=== PATIENT | female | born 1950 | race Caucasian/White ===

== ENCOUNTER → 2018-02-22 | Day surgery (SDC) | payer MEDICARE, OTHER ==
[2018-02-18 12:59] LABS: Basophils # (auto) 0 uL; Basophils % (auto) 0.3 % (0.0-2.0); Eosinophils # (auto) 0.1 uL; Hematocrit 42.9 % (36.0-46.0); Lymphocytes # (auto) 1.2 uL; Mean Corpuscular Hemoglobin 31.4 pg (28.0-32.0); Mean Corpuscular Hgb Conc. 34.9 g/dL (32.0-36.0); Monocytes # (auto) 0.5 uL; Monocytes % (auto) 6.8 % (0.0-12.0); Neutrophils # (auto) 5.1 uL; Neutrophils % (auto) 74.9 % (37.0-80.0); Nucleated Red Blood Cells % 0.1 %; Platelet Count (auto) 189 10^3/uL (140-450); Red Blood Cells 4.76 10^6/uL (4.0-5.20); Red Cell Distribution Width 13.3 % (11.8-14.3); White Blood Cell 6.8 10^3/uL (4.4-10.8)
[2018-02-18 13:12] LABS: INR 0.93 (0.9-1.15); Partial Thromboplastin Time 32.2 sec (23.78-33.04)
[2018-02-18 13:19] LABS: Albumin 3.8 g/dL (3.4-5.0); BUN/Creatinine Ratio 23.9; Bilirubin, Total 0.4 mg/dL (0.2-1.0); Calcium 8.7 mg/dL (8.5-10.1); Potassium 4.5 mmol/L (3.5-5.1); Total Protein 7.1 g/dL (6.4-8.2)
[2018-02-18 16:10] LABS: Urine Bacteria NONE SEEN /hpf (None Seen); Urine Blood Negative /uL (Negative); Urine Specific Gravity 1.007 (1.001-1.035); Urine WBC 1 /hpf (0 - 5)
[~2018-02-22] VITALS: Ht 167.6 cm; Wt 131.5 kg
[~2018-02-22] MED LIST: ATOR10TA52 PO; GLYCOPYRROLATE 0.2 MG/ML 1ML VIAL IV ONE; LISI-646 PO; MIDAZOLAM HCL 1MG/1ML-2 ML VIAL ONE; MORPHINE SULFATE 4 MG/ML SYR/VIAL IV PRN; NEOSTIGMINE 1 MG/ML INJ (10mg/10ML VIAL) IV ONE; ONDANSETRON HCL 4 MG/2 ML VIAL IV ONE; PANT40TA2 PO; PROPOFOL 10 MG/ML 20 ML IV ONE; ROCURONIUM 10MG/ML 10ML VIAL IV ONE; SERT-160 PO; SUCCINYLCHOLINE CHLORIDE 20 MG/ML 10ML VIAL IV ONE; ceFAZolin 1GM/50ML 50 ML IV ONE; fentaNYL CITRATE 5 ML ONE; hydrALAZINE HCL 20 MG/ML VL IV PRN
[2018-02-22 09:42] VITALS: BP 140/62
== END | disposition home or self-care (01) ==
LOC: SUR 06:03
PROVIDERS: ATTEND Orthopaedic Surgery
DX: M23.222 Derangement of posterior horn of medial meniscus due to old tear or injury, left knee (principal); M23.252 Derangement of posterior horn of lateral meniscus due to old tear or injury, left knee; M94.262 Chondromalacia, left knee; M23.8X2 Other internal derangements of left knee; E66.01 Morbid (severe) obesity due to excess calories; I10 Essential (primary) hypertension; K21.9 Gastro-esophageal reflux disease without esophagitis; E78.00 Pure hypercholesterolemia, unspecified; Z88.8 Allergy status to other drugs, medicaments and biological substances; Z68.42 Body mass index [BMI] 45.0-49.9, adult; Z90.710 Acquired absence of both cervix and uterus; Z90.49 Acquired absence of other specified parts of digestive tract; Z98.890 Other specified postprocedural states
CPT/HCPCS: 29876; 29880; 36415; 80053; 81001; 85025; 85610; 85730; A6257; J0330; J0690; J2250; J2704; J3010

== ENCOUNTER 2022-05-04 17:09 | Emergency (ER) | payer MEDICARE, OTHER ==
[~2022-05-04] VITALS: Ht 167.6 cm; Wt 170.0 kg
[~2022-05-04 17:09] MED LIST changes: -GLYCOPYRROLATE 0.2 MG/ML 1ML VIAL IV ONE; -LISI-646 PO; +LISI20TA28 PO; -MIDAZOLAM HCL 1MG/1ML-2 ML VIAL ONE; -MORPHINE SULFATE 4 MG/ML SYR/VIAL IV PRN; -NEOSTIGMINE 1 MG/ML INJ (10mg/10ML VIAL) IV ONE; -ONDANSETRON HCL 4 MG/2 ML VIAL IV ONE; -PROPOFOL 10 MG/ML 20 ML IV ONE; -ROCURONIUM 10MG/ML 10ML VIAL IV ONE; -SUCCINYLCHOLINE CHLORIDE 20 MG/ML 10ML VIAL IV ONE; -ceFAZolin 1GM/50ML 50 ML IV ONE; -fentaNYL CITRATE 5 ML ONE; -hydrALAZINE HCL 20 MG/ML VL IV PRN
[2022-05-04 17:15] VITALS: BP 128/76
[2022-05-04 19:04] LABS: Albumin 3.5 g/dL (3.4-5.0); BUN/Creatinine Ratio 21.3; Calcium 9.3 mg/dL (8.5-10.1); Potassium 4.6 mmol/L (3.5-5.1)
[2022-05-04 19:07] LABS: Bilirubin, Total 0.4 mg/dL (0.2-1.0); Total Protein 6.3 g/dL (6.4-8.2)
[2022-05-04 19:11] LABS: INR 0.93 (0.9-1.15)
[2022-05-04 19:12] LABS: Urine Blood Negative /uL (Negative); Urine Specific Gravity 1.019 (1.001-1.035)
[2022-05-04 19:17] LABS: Basophils # (auto) 0 10 ^3/uL (0-0.2); Basophils % (auto) 0.3 % (0.0-2.0); Eosinophils # (auto) 0.1 10 ^3/uL (0-0.8); Hematocrit 44.2 % (36.0-46.0); Hemoglobin 14.4 g/dL (12.2-16.2); Lymphocytes # (auto) 1.1 10 ^3/uL (0.4-5.4); Mean Corpuscular Hemoglobin 28.7 pg (28.0-32.0); Mean Corpuscular Hgb Conc. 32.7 g/dL (32.0-36.0); Mean Corpuscular Volume 87.8 fL (80.0-100.0); Monocytes # (auto) 0.5 10 ^3/uL (0-1.3); Monocytes % (auto) 7.8 % (0.0-12.0); Neutrophils # (auto) 5.1 10 ^3/uL (1.6-8.6); Neutrophils % (auto) 74.9 % (37.0-80.0); Nucleated Red Blood Cells % 0.1 %; Red Blood Cells 5.04 10^6/uL (4.0-5.20); Red Cell Distribution Width 13.5 % (11.8-14.3); White Blood Cell 6.8 10^3/uL (4.4-10.8)
== END 2022-05-04 20:00 | disposition left against medical advice (07) ==
LOC: EDBD 17:09 → ER 17:09
DX: R07.89 Other chest pain (principal); Z53.21 Procedure and treatment not carried out due to patient leaving prior to being seen by health care provider
CPT/HCPCS: 36415; 71045; 80053; 81003; 83880; 84484; 85025; 85610; 85730; 93005

== ENCOUNTER 2025-04-01 12:04 | Emergency (ER) | payer MEDICARE, OTHER ==
[~2025-04-01] VITALS: Ht 167.6 cm; Wt 144.5 kg
[~2025-04-01 12:04] MED LIST changes: -LISI20TA28 PO; +LISI20TA56 PO
--- NOTE | 2025-04-01 14:00 | DVH ---
EXAM: CT CT R SHOULDER WO CONTRAST INDICATION: pain TECHNIQUE: Axial images of right shoulder without contrast have been obtained along with coronal and sagittal reformatted images. All CT scans at this facility use dose modulation, iterative reconstruction, and/or weight based dosing when appropriate to reduce radiation dose to as low as reasonably ach ievable. COMPARISON: XY R SHOULDER 2+ VIEW XRAY on DOS: 03/24/25 FINDINGS: BONES: No CT evidence of an acute fracture or aggressive osseous lesion. callus formation likely sequelae of prior injury to the right inferior scapular tip. Degenerative change of the right acromioclavicular joint MUSCLES: No abnormal attenuation. JOINT SPACES: Trace right glenohumeral joint effusion. Inferior medial humeral head osteophyte. TENDONS/LIGAMENTS: Intact. OTHER: Prominence of the main pulmonary artery, which may indicate pulmonary hypertension. Coronary artery calcifications. IMPRESSION: 1. No CT evidence of an acute fracture. 2. Trace right glenohumeral joint effusion. 3. Degenerative change of the right acromioclavicular joint.
--- NOTE | 2025-04-01 14:14 | ED.PDOC ---
Musculoskeletal HPI Comments This is a 74-year-old severely obese lady who comes in with pain all over her body. But most pain is in her right shoulder. She went to her primary care doctor below weeks ago they told her they can not help her asked her to get an x-ray she had the x-ray done x-ray recommended she get a CT scan because of the severe pain. She can not take Motrin because she is on a blood thinner. She has taken [place] before but has not been effective at all. Denies any falls or any trauma. Patient was told that she might have rheumatoid arthritis. Chief Complaint: Upper Extremity Time Seen by MD: 14:37 Primary Care Provider: NELLA Reviewed Notes: Nurses Notes, Medications, Allergies Allergies: Uncoded Allergies: SURGICAL TAPE (Allergy, Unknown, 02/18/18) Home Meds Reported Medications Pantoprazole Sodium Sesquihydr (Protonix) 40 Mg Tab, 40 MG PO DAILY, #30 TAB 02/18/18 Atorvastatin Calcium (ATORVASTATIN CALCIUM) 10 Mg Tab, 1 TAB PO DAILY, #30 TAB 5 Refills 02/18/18 Sertraline Hcl (Sertraline Hcl) 100 Mg Tab, 1 TAB PO DAILY, #90 TAB 1 Refill 02/18/18 Lisinopril (Lisinopril) 20 Mg Tab, 20 MG PO BID for 30 Days, MG 02/18/18 Information Source: Patient Mode of Arrival: EMS Past Medical History PAST MEDICAL HISTORY: AFIB, High Lipids, HTN Past Medical History (Other): Morbid obesity Social History Smoker: Non-Smoker Alcohol: Denies ETOH Use Drugs: Denies Drug Use Lives In: Home Musculoskeletal: reports: joint pain, muscle pain (right shoulder) All Other Systems: Reviewed and Negative Physical Exam General Appearance: Moderate Distress, Normal, Obese HEENT: Normal ENT Inspection, PERRL/EOMI, Pharynx Normal Neck: Non-Tender, Normal Inspection, Supple Respiratory: Lungs Clear, No Respiratory Distress, Normal Breath Sounds Cardiovascular: Regular Rate/Rhythm Breast Exam: Deferred Gastrointestinal: Non Tender, Other Genitalia: Deferred Pelvic: Deferred Rectal: Deferred Extremities: Inflammation, Normal capillary refill, Normal inspection, Swelling, Tender (Limited range of motion of the right extremity) Neurologic: Alert, Normal Affect, Normal Mood Cerebellar Function: Normal Reflexes: Normal Skin: Dry, Warm Lymphatic: No Adenopathy Was a procedure done? Was a procedure done?: No Differential Diagnosis EXT Differential Diagnosis: Sprain, Dislocation X-Ray, Labs, Meds, VS Vital Signs Date Time Temp Pulse Resp B/P (MAP) Pulse Ox O2 Delivery O2 Flow Rate FiO2 04/01/25 12:10 98.4 72 16 150/72 96 98.4 04/01/25 12:09 68 X-Ray, Labs, Meds, VS Comment Patient seen and examined by me. Patient has multiple complaints of pain throughout her body. She states that she was seen by primary care until this nothing much she can do. Her main complaint is her right shoulder she had an x- ray that suggests she had a CT scan of her right shoulder. CT scan was done here. Patient was told that she might have rheumatoid arthritis.. Patient will be given a prescription for Flexeril and a dose before she leaves.. She will follow up with ortho this coming week. Talked about weight loss, and talked about more exercise and movement. ORDERING PHYSICIAN: LUCIEN HURST PROCEDURE(s): RST - CT R SHOULDER WO CONTRAST REASON: pain ORDER NUMBER(s): [id number], ACCESSION NUMBER(s): [id number] EXAM: CT CT R SHOULDER WO CONTRAST INDICATION: pain TECHNIQUE: Axial images of right shoulder without contrast have been obtained along with coronal and sagittal reformatted images. All CT scans at this facility use dose modulation, iterative reconstruction, and/or weight based dosing when appropriate to reduce radiation dose to as low as reasonably achievable. COMPARISON: XY R SHOULDER 2+ VIEW XRAY on DOS: 03/24/25 FINDINGS: BONES: No CT evidence of an acute fracture or aggressive osseous lesion. callus formation likely sequelae of prior injury to the right inferior scapular tip. Degenerative change of the right acromioclavicular joint MUSCLES: No abnormal attenuation. JOINT SPACES: Trace right glenohumeral joint effusion. Inferior medial humeral head osteophyte. TENDONS/LIGAMENTS: Intact. OTHER: Prominence of the main pulmonary artery, which may indicate pulmonary hypertension. Coronary artery calcifications. IMPRESSION: 1. No CT evidence of an acute fracture. 2. Trace right glenohumeral joint effusion. 3. Degenerative change of the right acromioclavicular joint. RING PHYSICIAN: LUCIEN HURST PROCEDURE(s): RSHCT - CT R SHOULDER WO CONTRAST REASON: pain ORDER NUMBER(s): [id number], ACCESSION NUMBER(s): [id number] EXAM: CT CT R SHOULDER WO CONTRAST INDICATION: pain TECHNIQUE: Axial images of right shoulder without contrast have been obtained along with coronal and sagittal reformatted images. All CT scans at this facility use dose modulation, iterative reconstruction, and/or weight based dosing when appropriate to reduce radiation dose to as low as reasonably achievable. COMPARISON: XY R SHOULDER 2+ VIEW XRAY on DOS: 03/24/25 FINDINGS: BONES: No CT evidence of an acute fracture or aggressive osseous lesion. callus formation likely sequelae of prior injury to the right inferior scapular tip. Degenerative change of the right acromioclavicular joint MUSCLES: No abnormal attenuation. JOINT SPACES: Trace right glenohumeral joint effusion. Inferior medial humeral head osteophyte. TENDONS/LIGAMENTS: Intact. OTHER: Prominence of the main pulmonary artery, which may indicate pulmonary hyp ertension. Coronary artery calcifications. IMPRESSION: 1. No CT evidence of an acute fracture. 2. Trace right glenohumeral joint effusion. 3. Degenerative change of the right acromioclavicular joint. Time of 1ST Reevaluation: 14:39 Reevaluation 1ST: Improved Patient Education/Counseling: Diagnosis, Treatment, Prognosis, Need For Follow Up Family Education/Counseling: Diagnosis, Treatment, Prognosis, Need For Follow Up Departure 1 Departure Time of Disposition: 14:39 Impression: Primary Impression: Arthritis pain of shoulder Additional Impression: Morbid obesity Disposition: 01 HOME / SELF CARE / HOMELESS Condition: Good Additional Instructions: Please consider doing as much as exercise and movement as you can Talk to your primary care doctor about a G-LP medication To help with your weight loss journey Try heat to help with your pain Take muscle relaxer as needed e-Prescriptions Cyclobenzaprine Hcl (CYCLOBENZAPRINE HCL) 7.5 Mg Tab 7.5 MG PO BID PRN for 7 Days, #14 TAB Prov: LUCIEN HURSTP 04/01/25 Discharged With: Self, Relative Critical Care Note Critical Care Time?: No Stability Stability form required: No LUCIEN HURST [facility] Apr 01, 2025 14:14
[2025-04-01] MEDS: CYCLOBENZAPRINE HCL 10 MG TAB PO ONE (14:41)
[2025-04-01] MEDS ORDERED: CYCL-838 PO (14:42)
[2025-04-01 14:54] VITALS: BP 148/70; PULSE 74; RESP 17; TEMP 98.1; O2SAT 96
--- NOTE | 2025-04-04 10:13 | ECG ---
[facility] Test Date: 2025-04-01 Test Time: 12:09:34 Pat Name: RACQUEL MONTES Department: [facility] ED Patient ID: [id number] Room: Gender: F Pan Dumper: maxine : 1950 Requested By: LUCIEN HURST Order Number: [id number] Reading MD: Pablo Torres Measurements Intervals [place] Rate: 68 P: 30 [place]: 163 QRS: 2 QRSD: 88 T: 74 QT: 326 QTc: 347 Interpretive Statements Sinus rhythm Multiple premature complexes, vent & supraven Abnormal R-wave progression, early transition LVH with secondary repolarization abnormality Electronically Signed On 04-06-2025 15:38:58 PST by Pablo Torres Please click the below link to view image of tracing.
== END 2025-04-01 14:57 | disposition home or self-care (01) ==
LOC: ER 12:04 → EDUNIT# 12:04 → EDBD 12:04 → ER 14:56
DX: M19.011 Primary osteoarthritis, right shoulder (principal); E66.01 Morbid (severe) obesity due to excess calories; I10 Essential (primary) hypertension; Z79.899 Other long term (current) drug therapy
CPT/HCPCS: 73200; 93005